=== PATIENT | female | born 1990 | race African-American/Black ===

== ENCOUNTER 2018-06-26 14:30 | Emergency (ER) | payer BC, OTHER ==
[~2018-06-26] VITALS: Ht 165.1 cm; Wt 95.3 kg
[2018-06-26 15:40] VITALS: BP 143/85
[2018-06-26] MEDS ORDERED: ACETAMINOPHEN 500 MG TABLET PO ONE (16:15)
[2018-06-26 16:29] LABS: INFLUENZA A PATIENT NEGATIVE (NEGATIVE); INFLUENZA B PATIENT NEGATIVE (NEGATIVE)
[2018-06-26] MEDS ORDERED: BENZ100C PO (16:46)
[2018-06-26] MEDS ORDERED: DOXY100C2 PO (16:46)
--- NOTE | 2018-06-26 16:47 | PHYS DOC ---
Past Medical History Past Medical History: No Pertinent History Past Surgical History: No Surgical History Alcohol Use: Occasionally Drug Use: None Adult General Chief Complaint Chief Complaint: FLU SYMPTOM HPI HPI Patient is a 28 year old male who presents to the emergency department with complaints of sinus pressure and nasal congestion for the last 10 days. She states that since yesterday she has developed a fever, chills, body aches, and a dry cough. Patient denies any nausea, vomiting, diarrhea, abdominal pain, or sore throat. She states that her ears have felt full from time to time. Patient reports feeling like this usually when she has a sinus infection. She denies any pain at this time Review of Systems Review of Systems Constitutional: See HPI Eyes: Denies redness, or eye pain [] HENT: See HPI Respiratory: Denies wheezing or shortness of breath; reports dry cough since yesterday Cardiovascular: No additional information not addressed in HPI [] GI: Denies abdominal pain, nausea, vomiting, or diarrhea [] Musculoskeletal: Denies back pain or joint pain [] Integument: Denies rash or skin lesions [] Neurologic: Denies headache, Complete systems were reviewed and found to be within normal limits, except as documented in this note. Current Medications Current Medications Current Medications Medications (Trade) Dose Ordered Sig/Sammy Start Time Stop Time Status Last Admin Dose Admin Acetaminophen (Tylenol) 1,000 mg 1X ONCE 06/26/18 16:15 06/26/18 16:16 DC 06/26/18 16:24 1,000 MG Allergies Allergies Allergies Coded Allergies Type Severity Reaction Last Updated Verified Penicillins Allergy Intermediate Rash 06/26/18 Yes Physical Exam Physical Exam Constitutional: Well developed, well nourished, no acute distress, non-toxic appearance, obese. [] HENT: Normocephalic, atraumatic, bilateral external ears normal, bilateral TMs normal, posterior pharynx cobblestone appearance, oropharynx moist, no oral exudates, nose normal; maxillary sinus TTP bilaterally, [] Eyes: PERRLA, conjunctiva normal, no discharge. [] Neck: Normal range of motion, no tenderness, supple, no stridor. [] Cardiovascular:Heart rate regular rhythm, no murmur [] Lungs & Thorax: Bilateral breath sounds clear to auscultation [] Skin: Warm, dry, no erythema, no rash. [] Extremities: No cyanosis, ROM intact, Neurologic: Alert and oriented X 3, nno focal deficits noted. [] Psychologic: Affect normal, judgement normal, mood normal. [] Current Patient Data Vital Signs Vital Signs Date Time Temp Pulse Resp B/P (MAP) Pulse Ox O2 Delivery O2 Flow Rate FiO2 06/26/18 15:40 101.0 107 16 143/85 (104) 96 Room Air 101.0 Lab Values Laboratory Tests Test 06/26/18 16:01 Influenza Type A Antigen Negative (NEGATIVE) Influenza Type B Antigen Negative (NEGATIVE) EKG EKG [] Radiology/Procedures Radiology/Procedures Rapid flu testing was negative[] Course & Med Decision Making Course & Med Decision Making Pertinent Labs and Imaging studies reviewed. (See chart for details) dx: Sinusitis, URI Prescriptions were written for Tessalon Perles and doxycycline. Influenza testing was negative, physical exam concerning for sinusitis, not concerning for pneumonia, or strep pharyngitis. Patient verbalized an understanding of home care, medications, follow-up, and return to ED instructions and was in agreement with the plan of care. Dragon Disclaimer Dragon Disclaimer This electronic medical record was generated, in whole or in part, using a voice recognition dictation system. Departure Departure Impression: Primary Impression: Sinusitis, acute maxillary Additional Impression: URI with cough and congestion Disposition: 01 HOME, SELF-CARE Condition: STABLE Referrals: UNKNOWN PCP NAME (PCP) Patient Instructions: Sinusitis, [id number] Additional Instructions: Fill prescription(s) and use as directed. Recommend use of a Cool mist humidifier in room at bedtime. Alternate Tylenol or ibuprofen as needed for pain /fever. Increase clear fluids. Avoid airway triggers such as smoke, fragrance, dust, and pollen. May take [id number] cough suppressants as needed. Follow -up with your primary care doctor symptoms persist, return to the ER symptoms worsen. Scripts Benzonatate (TESSALON PERLE) 100 Mg Capsule 1 CAP PO TID PRN for COUGH for 7 Days, #21 CAP 0 Refills Prov: YURIY DARNELL ANALYTICAL ENGINEER 06/26/18 Doxycycline Hyclate (DOXYCYCLINE HYCLATE) 100 Mg Capsule 1 CAP PO BID for 7 Days, #14 CAP 0 Refills Prov: YURIY DARNELL ANALYTICAL ENGINEER 06/26/18 Problem Qualifiers Primary Impression: Sinusitis, acute maxillary Recurrence: not specified as recurrent Qualified Codes: J01.00 - Acute maxillary sinusitis, unspecified YURIY DARNELL APRN Jun 26, 2018 16:47
== END 2018-06-26 17:13 | disposition home or self-care (01) ==
LOC: ER 14:30
DX: J01.00 Acute maxillary sinusitis, unspecified (principal); J06.9 Acute upper respiratory infection, unspecified; M79.18 Myalgia, other site; Z88.0 Allergy status to penicillin
CPT/HCPCS: 87804; 99283